=== PATIENT | female | born 1950 ===

== ENCOUNTER 2023-05-06 09:38 | Outpatient (CLI) | payer MEDICARE, MEDICAID, SELFPAY | END 2023-05-06 09:39 | disposition home or self-care (01) | LOC: ANHAUDIO 09:38 | PROVIDERS: Visit Provider Physician Assistant | DX: H91.90 Unspecified hearing loss, unspecified ear (principal) | CPT/HCPCS: 99199 ==

== ENCOUNTER 2023-07-18 14:50 | Outpatient (CLI) | payer MEDICARE, SELFPAY | END 2023-07-18 14:51 | disposition home or self-care (01) | PROVIDERS: Visit Provider Physician Assistant | DX: H91.92 Unspecified hearing loss, left ear (principal) | CPT/HCPCS: 92567 ==